=== PATIENT | female | born 1965 ===

== ENCOUNTER 2016-11-22 23:40 | Emergency (ER) | payer BC ==
[2016-11-22 23:54] VITALS: O2SAT 100
--- NOTE | 2016-11-23 00:39 | C.PDOC ---
History Of Present Illness A 51 y/o F c/o painless left facial droop for 2 days with involved forehead. Denies fever, chills, LOC, extremity weakness, or numbness, or any other complaints. Time Seen by Provider: 11/23/16 00:30 Chief Complaint (Nursing): Eye Problem History Per: Patient History/Exam Limitations: no limitations Onset/Duration Of Symptoms: Days Current Symptoms Are (Timing): Still Present Severity: Mild Quality: denies: "Pain" Recent travel outside of the [place]: No Additional History Per: Patient Past Medical History Reviewed: Historical Data, Nursing Documentation, Vital Signs Vital Signs: Last Vital Signs Temp 98.6 F 11/23/16 04:33 Pulse 68 11/23/16 04:33 Resp 20 11/23/16 04:33 BP 122/88 11/23/16 04:33 Pulse Ox 100 11/23/16 04:33 - Medical History PMH: Hyperthyroidism Family History: States: Unknown Family Hx - Social History Hx Alcohol Use: No Hx Substance Use: No - Immunization History Hx Tetanus Toxoid Vaccination: No Hx Influenza Vaccination: No Hx Pneumococcal Vaccination: No Review Of Systems Except As Marked, All Systems Reviewed And Found Negative. Constitutional: Positive for: Other (Painless left facial droop, involved forehead). Negative for: Fever, Chills Neurological: Negative for: Weakness, Numbness, Other (LOC) Physical Exam - Physical Exam Appears: Non-toxic, No Acute Distress Skin: Warm, Dry Head: Other (Flattended left forehead, left lid lag. Distorted smile pulling to the right.) Eye(s): bilateral: Normal Inspection Ear(s): Bilateral: Normal Oral Mucosa: Moist Cardiovascular: Rhythm Regular Respiratory: Normal Breath Sounds, No Accessory Muscle Use, No Rales, No Rhonchi , No Wheezing Neurological/Psych: Oriented x3, Normal Speech ED Course And Treatment - Laboratory Results Result Diagrams: 11/23/16 02:21 11/23/16 02:21 Lab Interpretation: Normal O2 Sat by Pulse Oximetry: 100 (RA) Pulse Ox Interpretation: Normal - Other Rad head CT X-Ray: Read By Radiologist (neg) Medical Decision Making Medical Decision Making: Impression: A 51 y/o F c/o painless left facial droop for 2 days with involved forehead Plans: -CT Head -Blood labs -pepcid -PredniSONE -IV fluids -Reassess Cerna's Palsy, affecting upper and lower L face. no pain. + L lid lag. Disposition Doctor Will See Patient In The: Office Counseled Patient/Family Regarding: Studies Performed, Diagnosis - Disposition Referrals: Cris Johnson MD [Primary Care Provider] - Jeb Hernández MD [Staff Provider] - Disposition: HOME/ ROUTINE Disposition Time: 03:02 Condition: GOOD Additional Instructions: Prednisona bajando en dosis sobre 2 semanas 60 mg diario por 5 elizondo 40 mg diario por 3 elizondo 20 mg diario por 3 dfias 10 mg diario por 3 elizondo para Pepcid 20 mg en la noche para prevenir irritacion' del estomago debido a los esteroides gotas para el josiah izquierda en la noche para prevenir kali de la cornea usa cinta para cerrar el josiah en la noche. Sigue con bella medico o' con Dr. Hernández (neurologo) para seguir bella evaluacion' Prescriptions: Mineral Oil/White Petrolatum [Artificial Tears] 3.5 gm OP HS #1 tube Prednisone [Deltasone] 20 mg PO DAILY #23 tablet Instructions: Cerna Palsy (ED) Forms: Work Excuse Print Language: FINNISH - Clinical Impression Clinical Impression: Facial droop - Scribe Statement The provider has reviewed the documentation as recorded by the Scribe Mariano gomez All medical record entries made by the Scribe were at my direction and personally dictated by me. I have reviewed the chart and agree that the record accurately reflects my personal performance of the history, physical exam, medical decision making, and the department course for this patient. I have also personally directed, reviewed, and agree with the discharge instructions and disposition.
[2016-11-23 02:32] LABS: CHLORIDE 101 mmol/L (98-107); SODIUM 138 mmol/L (132-148)
[2016-11-23 02:34] LABS: ALB/GLOB RATIO 1.4 (1.0-2.1); ALKALINE PHOSPHATASE 91 U/L (38-126); AST/SGOT 24 U/L (14-36); BILIRUBIN,TOTAL 0.4 mg/dL (0.2-1.3); BLOOD UREA NITROGEN 16 mg/dL (7-17); CARBON DIOXIDE 27 mmol/L (22-30); CHOLESTEROL 129 mg/dL (0-199); GFR AFRICAN-AMERICAN > 60; GLUCOSE,RANDOM 105 mg/dL (65-105); TOTAL PROTEIN 6.4 g/dL (6.3-8.3)
[2016-11-23 02:35] LABS: ALT/SGPT 54 U/L (9-52); CALCIUM 8.5 mg/dl (8.6-10.4)
[2016-11-23 02:47] LABS: BASO # 0.1 K/uL (0.0-0.2); BASO % 0.8 % (0.0-2.0); EOS # 0.3 K/uL (0.0-0.7); EOS % 3.2 % (0.0-4.0); HEMATOCRIT 43.3 % (34.0-47.0); LYMPH # 3.8 K/uL (1.0-4.3); LYMPH % 46.6 % (20.0-40.0); MEAN CELL VOLUME 82.4 fL (81.0-99.0); MEAN CORPUSCULAR HEMOGLOBIN 26.8 pg (27.0-31.0); MEAN CORPUSCULAR HGB CONC 32.5 g/dL (33.0-37.0); MEAN PLATELET VOLUME 9.9 fL (7.2-11.7); MONO # 0.4 K/uL (0.0-0.8); NRBC % 0.2 % (0.0-2.0); RED CELL DISTRIBUTION WIDTH 14.3 % (11.5-14.5); WHITE BLOOD COUNT 8.1 K/uL (4.8-10.8)
[2016-11-23 04:39] VITALS: BP 122/88; PULSE 68; RESP 20; TEMP 98.6
--- NOTE | 2016-11-23 08:32 | CT ---
PROCEDURE: CT HEAD WITHOUT CONTRAST. HISTORY: L facial droop c/w Cerna's COMPARISON: None available. TECHNIQUE: Axial computed tomography images were obtained through the head/brain without intravenous contrast. Radiation dose: Total exam DLP = 725.45 mGy-cm. This CT exam was performed using one or more of the following dose reduction techniques: Automated exposure control, adjustment of the mA and/or kV according to patient size, and/or use of iterative reconstruction technique. FINDINGS: HEMORRHAGE: No intracranial hemorrhage. BRAIN: No mass effect or edema. No significant atrophy. No evidence of acute infarct. Scattered nodular cortical calcifications, likely postinfectious or postinflammatory. VENTRICLES: Unremarkable. No hydrocephalus. CALVARIUM: Unremarkable. PARANASAL SINUSES: Unremarkable as visualized. No significant inflammatory changes. MASTOID AIR CELLS: Unremarkable as visualized. No inflammatory changes. OTHER FINDINGS: None. IMPRESSION: No evidence of intracranial mass, hemorrhage or acute infarct. Scattered nodular cortical calcifications likely postinfectious/postinflammatory. Otherwise unremarkable. Preliminary interpretation of this examination was reported by [facility] at 1:25 a.m. on 11/23/2016. There is concurrence of this report with the preliminary interpretation.
== END 2016-11-23 03:55 | disposition home or self-care (01) ==
LOC: SUPCPDRO 23:40 → C.ER 23:40
DX: R29.810 Facial weakness (principal)

== ENCOUNTER 2017-09-17 07:16 | Day surgery (SDC) | payer BC ==
[2017-09-17] MEDS ORDERED: Propofol 10 mg/ml Inj (20 ML) ONE ×2 (08:00→08:58)
--- NOTE | 2017-09-17 08:49 | CP.SDSHP ---
Same Day Surgery H & P - History Proposed Procedure: colonoscopy - Previous Medical/Surgical History Pulmonary: Asthma Endocrine/Metabolic: Thyroid Disease Previous Surgical History: cholecystectomy myomectomy - Allergies Allergies: Allergies No Known Allergies Allergy (Unverified 11/22/16 23:46) - Physical Exam Vital Signs: Vital Signs 09/17/17 07:39 Temperature 97.5 F L Pulse Rate 57 L Respiratory 19 Rate Blood Pressure 126/63 O2 Sat by Pulse 97 Oximetry - Date & Time Date: 09/17/17 Time: 08:49 Short Stay Discharge - Short Stay Discharge Admitting Diagnosis/Reason for Visit: SCREENING, FAMILY HISTORY OF COLON CANCER Disposition: HOME/ ROUTINE
[2017-09-17 10:21] VITALS: TEMP 98.2
--- NOTE | 2017-09-17 11:11 | CARD ---
APPROVED REPORT EKG Measurement Heart [id number] <Conclusion> Sinus bradycardia Right bundle branch block Abnormal ECG
[2017-09-17 11:31] VITALS: BP 136/52; PULSE 54; RESP 14; O2SAT 98
== END 2017-09-17 11:48 | disposition home or self-care (01) ==
LOC: C.ENDO 07:16
PROVIDERS: ATTEND Colon & Rectal Surgery
DX: Z12.11 Encounter for screening for malignant neoplasm of colon (principal); Z80.0 Family history of malignant neoplasm of digestive organs; E03.9 Hypothyroidism, unspecified; J45.20 Mild intermittent asthma, uncomplicated; E78.5 Hyperlipidemia, unspecified; K64.8 Other hemorrhoids; D12.8 Benign neoplasm of rectum
CPT/HCPCS: 45380; 88305; 93005; J2704; J3010